=== PATIENT | female | born 2005 | race Two or more races ===

== ENCOUNTER 2024-08-03 19:42 | Emergency (ER) | payer OTHER ==
[~2024-08-03] VITALS: Ht 165.1 cm; Wt 56.7 kg
[2024-08-03] MEDS ORDERED: FLUT16SP16 BNOSTRILS (20:25)
[2024-08-03] MEDS ORDERED: P-EP-427 PO (20:25)
[2024-08-03 20:34] VITALS: BP 120/86; TEMP 98; O2SAT 99
== END 2024-08-03 20:35 | disposition home or self-care (01) ==
LOC: ER 19:43
DX: J06.9 Acute upper respiratory infection, unspecified (principal); B97.89 Other viral agents as the cause of diseases classified elsewhere; F17.200 Nicotine dependence, unspecified, uncomplicated; G43.909 Migraine, unspecified, not intractable, without status migrainosus; Z79.899 Other long term (current) drug therapy
CPT/HCPCS: A4606; A4663